=== PATIENT | male | born 2000 | race African-American/Black ===

== ENCOUNTER 2021-06-10 02:44 | Emergency (ER) | payer SELFPAY ==
--- NOTE | 2021-06-10 08:41 | RAD ---
EXAM: Chest, single view. HISTORY: Cough. COMPARISON: None. FINDINGS: A frontal view of the chest obtained. There is right lower and middle lobe interstitial inf iltrate. There is a suspected trace right pleural effusion. There is no pneumothorax. The heart is no rmal in size. IMPRESSION: Right lower and middle lobe interstitial infiltrate with suspected trace pleural effusion . Electronically signed by: Nichelle Lala MD (06/10/2021 8:39 AM) [id number]
[2021-06-10 08:49] LABS: ALBUMIN/GLOBULIN RATIO 0.9 (1.0-1.7); CALCIUM 9.6 mg/dL (8.5-10.1); CREATININE 1.2 mg/dL (0.7-1.3); GFR 92.5; TOTAL PROTEIN 8.6 g/dL (6.4-8.2)
[2021-06-10 08:50] LABS: POTASSIUM 2.6 mmol/L (3.5-5.1)
[2021-06-10 09:00] LABS: HEMOGLOBIN 12.4 g/dL (13.0-17.5); RED BLOOD COUNT 4.25 x10^6/uL (4.30-5.70); WHITE BLOOD COUNT 14.9 x10^3/uL (4.0-11.0)
[2021-06-10 09:01] LABS: BASO % 0 % (0-3); EOS % 0 % (0-3); HEMATOCRIT 37.3 % (39.0-53.0); LYMPH % 7 % (24-48); MEAN CORPUSCULAR HEMOGLOBIN 29 pg (25-35); MEAN CORPUSCULAR HGB CONC 33 g/dL (31-37); MEAN CORPUSCULAR VOLUME 88 fL (79-100); MONO % 12 % (0-9); NEUT % 80 % (31-73); PLATELET COUNT 295 x10^3/uL (140-400); RED CELL DISTRIBUTION WIDTH 13.6 % (11.5-14.5)
--- NOTE | 2021-06-10 17:48 | NUR ---
IP: Attempted to contact pt concerning covid results. Phone number provided is not in service. Called contact lens cutter number and left a message to have pt call. Addendum: 06/10/21 at 1751 by CARLINE ROSSI RN Pt immediately returned my call, I informed him of the negative covid result. Pt verbalized understanding.
--- NOTE | 2021-06-10 18:40 | PHYS DOC ---
General Adult HPI: HPI: Patient is a 20 year old male with a past medical history asthma presents with a chief complaint of shortness of breath. Patient states shortness of breath is ongoing for greater than 1 week progressive becoming worse. Patient states he was seen at [facility] [place] and they did "nothing". Patient has associated cough with sputum production he has associated nausea vomiting and diarrhea. Patient states prior to arrival breathing became worse he has used his asthma medications with no relief. On arrival patient was tachypneic diaphoretic and febrile. Patient did have an episode of emesis in the department. Lung exam clear to auscultation bilateral. Review of Systems: Review of Systems: Review of systems: Constitutional symptoms- Positive fever, no chills. Eyes- No Discharge, No Visual Loss Respiratory symptoms- Positive shortness of breath, No wheezing, Positive Dyspn ea on Exertion Cardiovascular Systems; No chest pain, No Palpitations, No syncope Gastrointestinal symptoms: NO abdominal pain,Positive nausea, Positive vomiting Positive diarrhea. Genitourinary symptoms: No dysuria. Musculoskeletal symptoms: No back pain No extremity pain. NEUROLOGICAL Symptoms: No headache, no generalized weakness; No focal Weakness Skin: No rash. Heart Score: C/O Chest Pain: N/A Risk Factors: Risk Factors: DM, Current or recent (<one month) smoker, HTN, HLP, family history of CAD, obesity. Risk Scores: Score 0 - 3: 2.5% MACE over next 6 weeks - Discharge Home Score 4 - 6: 20.3% MACE over next 6 weeks - Admit for Clinical Observation Score 7 - 10: 72.7% MACE over next 6 weeks - Early Invasive Strategies Physical Exam: PE: General: alert, no acute distress. Skin: warm, dry and intact. HENT: bilateral external ears normal, oropharynx moist, nose normal. Head:: Normocephalic, atraumatic. Neck: Trachea midline. Eyes: EOMI, Normal conjunctiva, No drainage CARDIOVASCULAR: Tachycardic RESPIRATORY: Tachypneic, lungs clear bilateral Back: Full range of motion. Skin: Warm, dry, no erythema, no rash. MUSCULOSKELETAL: Full range of motion of bilateral upper and lower extremities. GASTROINTESTINAL: Abdomen soft without rebound or guarding. NEUROLOGICAL: Alert and noted to person, place and time. No neurological deficits observed Psychiatric: Cooperative. Normal judgment Current Patient Data: Labs: Laboratory Tests Test 06/10/21 03:00 06/10/21 03:30 White Blood Count 14.9 x10^3/uL (4.0-11.0) H Red Blood Count 4.25 x10^6/uL (4.30-5.70) L Hemoglobin 12.4 g/dL (13.0-17.5) L Hematocrit 37.3 % (39.0-53.0) L Mean Corpuscular Volume 88 fL (79-100) Mean Corpuscular Hemoglobin 29 pg (25-35) Mean Corpuscular Hemoglobin Concent 33 g/dL (31-37) Red Cell Distribution Width 13.6 % (11.5-14.5) Platelet Count 295 x10^3/uL (140-400) Neutrophils (%) (Auto) 80 % (31-73) H Lymphocytes (%) (Auto) 7 % (24-48) L Monocytes (%) (Auto) 12 % (0-9) H Eosinophils (%) (Auto) 0 % (0-3) Basophils (%) (Auto) 0 % (0-3) Sodium Level 140 mmol/L (136-145) Potassium Level 2.6 mmol/L (3.5-5.1) *L Chloride Level 100 mmol/L (98-107) Carbon Dioxide Level 21 mmol/L (21-32) Anion Gap 19 (6-14) H Blood Urea Nitrogen 5 mg/dL (8-26) L Creatinine 1.2 mg/dL (0.7-1.3) Estimated GFR (Cockcroft-Gault) 92.5 BUN/Creatinine Ratio 4 (6-20) L Glucose Level 115 mg/dL (70-99) H Calcium Level 9.6 mg/dL (8.5-10.1) Total Bilirubin 1.0 mg/dL (0.2-1.0) Aspartate Amino Transferase (AST) 24 U/L (15-37) Alanine Aminotransferase (ALT) 42 U/L (16-63) Alkaline Phosphatase 75 U/L (46-116) Total Protein 8.6 g/dL (6.4-8.2) H Albumin 4.0 g/dL (3.4-5.0) Albumin/Globulin Ratio 0.9 (1.0-1.7) L SARS-CoV-2 RNA (LEV) Negative (Negative) Laboratory Tests 06/10/21 03:00 Laboratory Tests 06/10/21 03:00 EKG: EKG: [] Radiology/Procedures: Radiology/Procedures: [] Impression: Wet read chest x-ray Right lower lobe infiltrate right heart border Course & Med Decision Making: Course & Med Decision Making Pertinent Labs and Imaging studies reviewed. (See chart for details) [] Patient was evaluated for chief complaint. Work-up consisted of laboratory analysis radiologic imaging and EKG. Results reviewed and discussed with adán natarajan. X-ray found to have an infiltrate right lobe. Patient's potassium noted to be 2.6. Treatment included IV fluids x2. Patient received Tylenol for his fever. Patient received p.o. potassium. He also received Zofran for his nausea. Post treatment patient heart rate improved to the 80s. Oxygen saturations 9798% on room air. Patient was informed of his x-ray findings. Patient was discharged home with a diagnosis of pneumonia and hypokalemia. Patient referred received prescriptions for Zofran potassium and Zithromax. Covid test obtained and pending. First To File Disclaimer: First To File Disclaimer: This electronic medical record was generated, in whole or in part, using a voice recognition dictation system. Departure Departure Impression: Primary Impression: Person under investigation for COVID-19 Additional Impression: Pneumonia Disposition: 01 HOME / SELF CARE / HOMELESS Condition: STABLE Patient Instructions: Pneumonia, Adult, Viral Syndrome Additional Instructions: You have been tested for or diagnosed with COVID-19. It is an infection caused by a new type of coronavirus. COVID-19 will cause cold-like or mild flu symptoms in most. It can cause more severe symptoms like problems breathing in some. There is no treatment for COVID-19. The body will clear the infection over time. Self-care will help to ease discomfort. Steps to Take: Self-Care Rest as needed. Healthy habits may help you feel better. Steps include: Choose healthy foods including fruits and vegetables. Drink water throughout the day. Get plenty of sleep each night. If you smoke, try to quit. It may ease breathing. Avoid alcohol. Keep Others Healthy The virus can spread to others. Droplets are released every time you sneeze or cough. The droplets can get into the mouth, nose, or eyes of people near you and lead to infection. To lower the chances of spreading COVID-19 to others: Stay at home until your doctor has said it is safe to leave. If you tested positive this will mean staying isolated until both of the following are true: At least 7 days have passed since the start of illness. You are free of fever for at least 72 hours without the use of medicine. During this time: - Avoid public areas, events, or transportation. Do not return to work or school until your doctor has said it is safe to do so. - Call ahead if you need to go to a medical center. Let them know you may have COVID-19. It will help them guide you where to go. They may also ask you to wear a facemask when you come to the office. - If you call for emergency medical services, let them know you may have COVID- 19. While at home: - Try to avoid close contact with others. Stay about 6 feet away. - If possible, spend most of your time in a separate room from others. - Use a face mask if you will be in close contact with others such as sharing a room or vehicle. - Have someone wipe down common surfaces in the home. Use household shingles roofer every day on areas like doorknobs, counters, or sinks. - Cough or sneeze into a tissue. Throw the tissue away right after use. If a tissue is not available, cough or sneeze into your elbow. - Wash your hands often. Wash them after sneezing or coughing. Use soap and water and wash for at least 20 seconds. Alcohol based hand cleaner and polisher can be used if soap and water is not available. - Do not prepare food for others. Avoid sharing personal items like forks, spoons, or toothbrushes. - Avoid close contact with pets while you are sick. There is no evidence of the virus passing to pets. This is a safety step until more is known about this virus. Isolation can be frustrating. Social interaction can help. Keep in touch with friends and family through phone and tech options. You can still interact with others in your home, just keep a safe distance of about 6 feet. Follow-up: Your doctors office will check in with you to see if there are any changes in your health. You may be asked to keep track of symptoms to share with them. They will also let you know when you are clear to be in public again. Problems to Look Out For: Contact your doctor if your recovery is not going as you expect. Get emergency care if you have problems such as: - Trouble breathing - Nonstop chest pain or pressure - Changes in awareness, confusion, or problems waking - Lips or face have bluish color - Worsening of symptoms If you think you have an emergency, call for emergency medical services right away. As taken from [facility] WILVER CUMMINS DO Jun 10, 2021 18:40
== END 2021-06-10 07:36 | disposition home or self-care (01) ==
LOC: ER 02:44
DX: J18.9 Pneumonia, unspecified organism (principal); Z20.822 Contact with and (suspected) exposure to COVID-19
CPT/HCPCS: 71045; 80053; 85025; 87040; 93005; 99285; U0003; U0005